=== PATIENT | female | born 1975 | race Hispanic/Latino ===

== ENCOUNTER 2022-03-13 12:41 | Emergency (ER) | payer SELFPAY ==
[2022-03-13] MEDS ORDERED: SYNTHROID25 MCG PO (12:54)
[2022-03-13 13:12] LABS: BASO% 0.4 % (0-3); EOS% 0.4 % (0-8); HEMATOCRIT 41.6 % (37.0-47.0); HEMOGLOBIN 13.5 g/dl (12.0-16.0); IMMATURE GRANULOCYTES 0.3 % (0.0-5.0); MEAN CELL VOLUME 80.2 fL CALC (80.0-100.0); MEAN CORPUSCULAR HGB CONC 32.5 g/dL CAL (32.0-36.0); MONO% 5.2 % (2-13); NEUT# 5.85 thou/uL (2.00-7.15); NEUT% 83.7 % (42-76); RED BLOOD COUNT 5.19 mill/uL (4.20-5.60); RED CELL DISTRI WIDTH 14.7 % (11.5-15.5)
[2022-03-13 13:18] LABS: ALBUMIN 4.6 g/dL (3.2-5.0); ALKALINE PHOSPHATASE 96 u/l (38-126); ANION GAP 13 (6-22 (CALC)); BILIRUBIN, TOTAL 0.8 mg/dL (0.02-1.3); BUN 14 mg/dL (7-17); BUN/CREATININE RATIO 24 (12-20 (CALC)); CARBON DIOXIDE 22 mmol/l (22-30); CHLORIDE 105 mmol/l (95-108); CREATININE 0.6 mg/dL (0.5-1.0); GFR FOR AFR.AMER. > 60 ML/MIN (>=60 (CALC)); GFR OTHER RACES > 60 ML/MIN (>=60 (CALC)); LIPASE 43 u/l (23-300); POTASSIUM 3.8 mmol/l (3.5-5.1); SGOT/AST 47 u/l (14-36); SODIUM 136 mmol/l (137-146); TOTAL PROTEIN 8.4 g/dL (6.3-8.2)
[2022-03-13 13:36] LABS: URINE BILIRUBIN - DIPSTICK NEGATIVE (NEGATIVE); URINE BLOOD DIPSTICK MODERATE (NEGATIVE); URINE COLOR YELLOW; URINE GLUCOSE - DIPSTICK NEGATIVE (NEGATIVE); URINE KETONE 40 mg/dL (NEGATIVE); URINE LEUK ESTERASE TRACE (NEGATIVE); URINE NITRITE - DIPSTICK POSITIVE (Negative); URINE PROTEIN - DIPSTICK 30 mg/dL (NEG-TRACE); URINE SPECIFIC GRAVITY >=1.030; URINE UROBILINOGEN - DIPSTICK 0.2 E.U./dL (0.2)
[2022-03-13 13:48] LABS: URINE BACTERIA FEW hpf; URINE RBC 0-2 RBC/hpf (0-5)
[2022-03-13 13:49] LABS: URINE SQUAMOUS EPITHELIAL CELL MODERATE EPI/hpf (0-FEW)
[2022-03-13] MEDS ORDERED: IMODIUM2 MG PO (16:34)
[2022-03-13] MEDS ORDERED: ZOFRAN4 MG/TAB PO (16:34)
[2022-03-13 16:40] VITALS: BP 129/79
== END 2022-03-13 16:50 | disposition home or self-care (01) | DRG 392 ==
LOC: ED 12:41
PROVIDERS: Emergency Medicine
DX: A08.4 Viral intestinal infection, unspecified (principal); Z20.822 Contact with and (suspected) exposure to COVID-19
CPT/HCPCS: S0164